=== PATIENT | male | born 1945 | race Caucasian/White ===

== ENCOUNTER → 2016-05-30 | Outpatient (CLI) | payer MEDICARE, BC | LOC: GMAH 10:33 | PROVIDERS: ATTEND Family Medicine | DX: I10 Essential (primary) hypertension (principal); Z12.5 Encounter for screening for malignant neoplasm of prostate | CPT/HCPCS: 84443; 84550; G0103 ==

== ENCOUNTER → 2017-06-21 | Outpatient (CLI) | payer MEDICARE, BC | LOC: LAB.O 13:30 | PROVIDERS: ATTEND Internal Medicine Gastroenterology | DX: R19.7 Diarrhea, unspecified (principal); R63.4 Abnormal weight loss ==

== ENCOUNTER → 2017-06-22 | Outpatient (CLI) | payer MEDICARE, BC ==
--- NOTE | 2017-06-23 08:41 | CT ---
EXAM DESCRIPTION: Abdomen/Pelvis w/Contrast: Computed Tomography. CLINICAL HISTORY: R10.84,R63.4 COMPARISON: CT scan of the abdomen and pelvis with IV contrast on this visit. TECHNIQUE: Spiral, axial 5.0 mm scans through the chest without contrast. Coronal and sagittal 2.0 mm reconstructions. Total Exam DLP: 436.21 mGy-cm. This exam was performed according to our departmental CT dose-optimization program which includes automated exposure control, adjustment of the mA and/or kV according to patient size and/or use of iterative reconstruction technique; to reduce radiation dose to as low as reasonably achievable (ALARA). FINDINGS: Prominent septal markings and interstitial densities in the lung bases more left than right. Similar process in the inferior lingula. Also thickening of major fissures and segmental and subsegmental margins. Minimal interstitial disease in the upper lung velazco. No prominent airspaces. [place] soft tissue nodule with smooth margins in the left upper lobe abutting the superior left major fissure with mean diameter 5.3 mm (series 4, image 35). Minimal posterior dependent atelectasis. No other abnormal nodules masses or infiltrates. No pleural effusion or pneumothorax. Evaluation of the mediastinum and hilum limited due to lack of IV contrast. Heterogeneous density in the thyroid gland. No large masses within the mediastinum axilla or hilar areas. Atherosclerotic calcifications of the aorta and proximal brachiocephalic vessels. Coronary artery calcifications. Minimal spondylosis in the included thoracic spine. Other bony structures are unremarkable in the thorax. IMPRESSION: 1. Interstitial process in the lungs predominantly lower lobes and more in the left lower lobe. Also in the inferior lingula. Nonspecific finding. This can be age-related or one of several interstitial lung diseases. 5 to 6 mm nodule in the left upper lobe abutting the superior major fissure noncalcified with smooth margins. Consider [facility] Best Practice recommendations utilizing 2017 Fleischner Society guidelines for solitary pulmonary nodules. Hospital follow-up chest CT scan in one year interval. Please see below.* No pulmonary mass and no pleural effusion. 2. Limited evaluation of the soft tissues due to lack of IV contrast but no large masses in the mediastinum and alexis or axillary regions or chest wall. *2017 Fleischner Society Recommendations for Single Solid Lung Nodule Follow-Up based on size (average of long- and short-axis diameters) <6 mm Low-Risk Patient: No routine follow-up <6 mm High-Risk Patient: Optional CT at 12 months 6-8 mm Low-Risk Patient: CT at 6-[address] at 18-24 months 6-8 mm High-Risk Patient: CT at 6-[address] at 18-24 months >8 mm Low-Risk Patient: Consider CT, PET/CT or tissue sampling at 3 months >8 mm High-Risk Patient: Same as for low-risk patient Electronically signed by: Bernabe Bonilla MD 06/23/2017 8:40 AM [facility]
--- NOTE | 2017-06-23 08:48 | CT ---
EXAM DESCRIPTION: Chest non-contrast: Computed Tomography. CLINICAL HISTORY: R10.84,R63.4 COMPARISON: CT scan of the abdomen and pelvis with IV contrast on this visit. TECHNIQUE: Spiral, axial 5.0 mm scans through the chest without contrast. Coronal and sagittal 2.0 mm reconstructions. Total Exam DLP: 436.21 mGy-cm. This exam was performed according to our departmental CT dose-optimization program which includes automated exposure control, adjustment of the mA and/or kV according to patient size and/or use of iterative reconstruction technique; to reduce radiation dose to as low as reasonably achievable (ALARA). FINDINGS: Prominent septal markings and interstitial densities in the lung bases more left than right. Similar process in the inferior lingula. Also thickening of major fissures and segmental and subsegmental margins. Minimal interstitial disease in the upper lung velazco. No prominent airspaces. [place] soft tissue nodule with smooth margins in the left upper lobe abutting the superior left major fissure with mean diameter 5.3 mm (series 4, image 35). Minimal posterior dependent atelectasis. No other abnormal nodules masses or infiltrates. No pleural effusion or pneumothorax. Evaluation of the mediastinum and hilum limited due to lack of IV contrast. Heterogeneous density in the thyroid gland. No large masses within the mediastinum axilla or hilar areas. Atherosclerotic calcifications of the aorta and proximal brachiocephalic vessels. Coronary artery calcifications. Minimal spondylosis in the included thoracic spine. Other bony structures are unremarkable in the thorax. IMPRESSION: 1. Interstitial process in the lungs predominantly lower lobe and more in the left lower lobe. Also in the inferior lingula. Nonspecific finding. This can be age-related or one of several interstitial lung diseases. 5 to 6 mm nodule in the left upper lobe abutting the superior major fissure noncalcified with smooth margins. Consider [facility] Best Practice recommendations utilizing 2017 Fleischner Society guidelines for solitary pulmonary nodules. Hospital follow-up chest CT scan in one year interval. Please see below.* No pulmonary mass and no pleural effusion. 2. Limited evaluation of the soft tissues due to lack of IV contrast but no large masses in the mediastinum and alexis or axillary regions or chest wall. *2017 Fleischner Society Recommendations for Single Solid Lung Nodule Follow-Up based on size (average of long- and short-axis diameters) <6 mm Low-Risk Patient: No routine follow-up <6 mm High-Risk Patient: Optional CT at 12 months 6-8 mm Low-Risk Patient: CT at 6-[address] at 18-24 months 6-8 mm High-Risk Patient: CT at 6-[address] at 18-24 months >8 mm Low-Risk Patient: Consider CT, PET/CT or tissue sampling at 3 months >8 mm High-Risk Patient: Same as for low-risk patient Electronically signed by: Bernabe Bonilla MD 06/23/2017 8:47 AM [facility]
== END ==
LOC: CT 09:00
PROVIDERS: ATTEND Internal Medicine Gastroenterology
DX: R10.84 Generalized abdominal pain (principal); R63.4 Abnormal weight loss

== ENCOUNTER 2017-08-01 05:41 | Day surgery (SDC) | payer MEDICARE, BC ==
--- NOTE | 2017-07-29 09:30 | RAD ---
EXAM DESCRIPTION: Chest,2 Views CLINICAL HISTORY: PRE OP COMPARISON: None TECHNIQUE: PA/lateral FINDINGS: There is no acute appearing cardiac or pulmonary abnormality. Heart size is normal with normal pulmonary vascularity. No pleural effusion or pneumothorax. Lungs are clear with no consolidating infiltrate. Lateral view shows intact sternum and osteopenic T-spine with mild lower thoracic spurring. Question old rib fractures posteriorly on the left. IMPRESSION: No acute process is identified in the chest. Electronically signed by: Lobito Iglesias MD 07/29/2017 9:29 AM [facility]
[2017-08-01] MEDS ORDERED: SODIUM CHL 0.9% 100ML MINI-BAG 100 ML IVPB ONE (06:54)
[2017-08-01] MEDS ORDERED: ceFAZolin SODIUM 1 GM VIAL ONE (06:54)
[2017-08-01] MEDS ORDERED: LACTATED RINGERS 1,000 ML ONE (06:54)
[2017-08-01] MEDS ORDERED: SODIUM BICARBONATE VIAL 50 MEQ/50 ML VIAL ONE (07:41)
[2017-08-01] MEDS ORDERED: HEPARIN SODIUM 100 U/ML 5 ML SYG IV ONE (07:41)
[2017-08-01] MEDS ORDERED: SODIUM CHLORIDE 0.9% 50 ML VIAL ONE (07:41)
[2017-08-01] MEDS ORDERED: LIDOCAINE 1% 50 ML VIAL INJ ONE (07:41)
[2017-08-01] MEDS ORDERED: MIDAZOLAM INJ 2 MG/2 ML VIAL ONE (08:29)
[2017-08-01] MEDS ORDERED: fentaNYL CITRATE INJ 50 MCG/ML AMP ONE (08:29)
[2017-08-01] MEDS ORDERED: PROPOFOL 200 MG/20 ML VIAL IV ONE (10:00)
[2017-08-01] MEDS ORDERED: LIDOCAINE 1% 10 ML VIAL INJ ONE (10:00)
--- NOTE | 2017-08-01 10:00 | RAD ---
EXAM DESCRIPTION: Chest,1 View CLINICAL HISTORY: post venous access port placement. COMPARISON: Chest radiograph dated July 28, 2017 IMPRESSION: Single upright portable frontal view of the chest. Interval placement of a right chest port with distal tip projecting over the mid to distal SVC. Cardiac silhouette and pulmonary vascularity are within normal limits. Calcific atherosclerosis noted of the aortic arch. Linear opacities in the left lung base most likely represent atelectasis. Underlying infiltrate cannot be excluded, although felt less likely. No significant pleural effusion. No pneumothorax. Electronically signed by: Eyal Skelton MD 08/01/2017 10:00 AM CDT
[2017-08-01 10:38] VITALS: BP 154/82; TEMP 96.6; O2SAT 100
--- NOTE | 2017-08-01 10:46 | OP ---
DATE OF PROCEDURE: 08/01/17 PREOPERATIVE DIAGNOSIS: 1. Pancreatic cancer. POSTOPERATIVE DIAGNOSIS: 1. Pancreatic cancer. PROCEDURE: 1. Insertion of right subclavian venous access port using fluoroscopy. SURGEON: Donte Reese MD. MEDIA COORDINATOR: None. ANESTHESIA: Local infiltration of 1% lidocaine with bicarb and IV sedation by Anesthesia. INDICATION: The patient is a 71-year-old male with a history of pancreatic malignancy. He is to receive neoadjuvant chemotherapy hopefully to a Whipple procedure. He was brought to the Surgical Suite today for insertion of a port after the risks, benefits and alternatives to the procedure were discussed and accepted. FINDINGS: Fluoroscopy revealed the guidewire and then the catheter in position in the superior vena cava. Portable chest x-ray is pending. PROCEDURE: After the patient was brought to the Surgical Suite and placed in the supine position, he was prepped and draped in the usual sterile manner. Surgical time-out was taken. The patient was then sedated intravenously and local infiltration of anesthesia was obtained in the infraclavicular area on the right which had previously been marked. At this point, a 22-gauge needle was introduced under the clavicle and venous blood was aspirated. The 18-gauge thin wall needle was then introduced in the same direction. Venous blood was easily aspirated and the guidewire was introduced through the needle and advanced to approximately 28 cm. The needle was removed and the guidewire left in position. Stab wound was made over the wire with a 15 blade. A towel was placed over the field and the fluoroscopy was used to identify the guidewire in position in the superior vena cava. At this point, a port pocket was formed first with local infiltration of anesthesia, then with a sharp knife. Dissection was carried down through the skin and subcutaneous tissue using electrocautery and then the port pocket was formed inferiorly using electrocautery and blunt dissection. When the port pocket was appropriate, the catheter and port which had been flushed were introduced into the port pocket and sutured in place with 2 Prolene simple sutures. The catheter was then tunneled to the insertion site from the port pocket. It was then cut to appropriate length. The dilator introducer was introduced over the guidewire. The guidewire and dilator were removed. The catheter was introduced through the introducer and then the introducer was removed. At this point, the port was accessed with a Velasquez needle. Blood was easily aspirated. It was then flushed with heparinized saline and then heplocked serially. When this was done , it was de-accessed. A towel was placed over the field and again the fluoroscope was used to identify the catheter in position in the superior vena cava. At this point, the subcutaneous tissue at the port pocket site was reapproximated with interrupted 3-0 Vicryl sutures and the skin edges approximated with 4-0 Vicryl subcuticular sutures, benzoin and Steri-Strips. The insertion site incision was closed with a single 4-0 Vicryl subcuticular suture, benzoin and Steri-Strip. A sterile dressing was applied. The patient tolerated the procedure well. Estimated blood loss was less than 25 mL. All sponge, needle and instrument counts were correct. Stat portable x-ray is ordered in the Ambulatory Unit. #[id number] [facility]
== END 2017-08-01 10:30 | disposition home or self-care (01) ==
LOC: AMB 05:41
PROVIDERS: ATTEND Surgery
DX: C25.9 Malignant neoplasm of pancreas, unspecified (principal); E11.9 Type 2 diabetes mellitus without complications; I10 Essential (primary) hypertension; I25.10 Atherosclerotic heart disease of native coronary artery without angina pectoris; Z79.4 Long term (current) use of insulin; Z79.82 Long term (current) use of aspirin; Z79.899 Other long term (current) drug therapy; Z95.5 Presence of coronary angioplasty implant and graft; Z87.891 Personal history of nicotine dependence
CPT/HCPCS: 00532; 36415; 36416; 36571; 71045; 71046; 76000; 80053; 81001; 82948; 85025; 93005; A4216; C1788; J0690; J1642; J2250; J3010; J3490; J7050; J7120

== ENCOUNTER 2018-05-06 00:47 | Emergency (ER) | payer MEDICARE, BC ==
[2018-05-06] MEDS ORDERED: HYDROcodone 10MG/APAP 325MG 1 EA TAB PO ONE (01:15)
[2018-05-06] MEDS ORDERED: ORPHENADRINE CITRATE 30 MG/ML AMP IM ONE (01:15)
--- NOTE | 2018-05-06 01:16 | ED.PDOC ---
History of Present Illness - General Chief Complaint: Neck Injury/Pain Stated Complaint: stiff neck Time Seen by Provider: 05/06/18 01:14 Source: patient Exam Limitations: no limitations - History of Present Illness Initial Comments: Gurvinder Pan 72 y/o male stated had some non radiating dull ache back of neck for 2 1/2 days and graduallly got worse tonight unable to turn his head up and from side to side.Denies recent or remote neck injury.Has history of pancreatic cancer s/p surgery and chemotherapy.Denies numbness,sore throat,chest pains,head ache or weakness both arms/legs.Took nsaids,aspirin,applied warm/moist pack but not helping. Timing/Duration: other - see hpi Severity: moderate Improving Factors: rest Worsening Factors: movement Associated Symptoms: denies symptoms, other - see hpi Allergies/Adverse Reactions: Allergies Morphine Allergy (Verified 12/26/14 14:36) Vomitting Home Medications: Ambulatory Orders Aspirin 325 mg PO BEDTIME 07/28/17 Atorvastatin Calcium [Lipitor] 80 mg PO BEDTIME 07/28/17 Enalapril Maleate 5 mg PO BID 07/28/17 Glyburide-Metformin [Glyburide/Metformin HCl 5-500 mg] 1 tab PO TID 07/28/17 Insulin Detemir [Levemir] 0 unit SUBCU BEDTIME 07/28/17 Metoprolol Succinate [Metoprolol Succinate ER] 100 mg PO DAILY 07/28/17 Pancrelipase (Lipase-Protease- [Zenpep] 1 cap PO TID 07/28/17 Pioglitazone HCl 45 mg PO DAILY 07/28/17 Sitagliptin Phosphate [Januvia] 100 mg PO DAILY 07/28/17 Tramadol HCl 50 mg PO PRN 07/28/17 Carisoprodol [Soma] 350 mg PO TID PRN #30 tab 05/06/18 Review of Systems - Review of Systems Musculoskeletal: States: see HPI, neck pain All other Systems: Reviewed and Negative, No Change from Baseline Past Medical History (General) - Patient Medical History Hx Stroke: No Hx Cardiac Disorders: Yes - [place] Hx Congestive Heart Failure: No Hx Hypertension: Yes Hx Diabetes: Yes - FSBS- 141 THIS AM Hx Cancer: Yes - pancreatic Hx MRSA: No Surgical History: other - Whipples surgery;cardiac stent - Vaccination History Hx Influenza Vaccination: Yes - 2013 Hx Pneumococcal Vaccination: Yes - Social History Hx Tobacco Use: Yes - quit 1994 Family Medical History - Family History Father Living Status: Hx Family Hypertension: Yes Physical Exam - Physical Exam General Appearance: Alert, Comfortable, No apparent distress Eye Exam: bilateral normal Ears, Nose, Throat: hearing grossly normal, normal ENT inspection, normal pharynx Neck: normal inspection, limited range of motion - pain on extension and both lateral flexion Respiratory: chest non-tender, lungs clear, normal breath sounds Cardiovascular/Chest: normal peripheral pulses, regular rate, rhythm, no murmur Peripheral Pulses: radial,right: 2+, radial,left: 2+ Gastrointestinal/Abdominal: non tender, soft Back Exam: no CVA tenderness, no vertebral tenderness Neurologic: alert, oriented x 3 Skin Exam: normal color, warm/dry Progress - Progress Progress: 05/06/18 01:46 Vital Signs - 8 hr 05/06/18 01:07 Temperature 97.5 F L Pulse Rate [ 120 H left] Respiratory 20 Rate Blood Pressure 188/95 [left] O2 Sat by Pulse 99 Oximetry - EKG/XRAY/CT CT Ordered: Yes - c-spine -degenerative disc disease Departure - Departure Clinical Impression: Neck pain, acute, Torticollis, unspecified, Degenerative cervical disc Time of Disposition: 02:28 Disposition: Discharge to Home or Self Care Condition: Fair Departure Forms: ED Discharge - Pt. Copy, Patient Portal Self Enrollment Instructions: DI for Neck Pain, Degenerative Disc Disease (DC), Generalized Neck Pain (DC) Referrals: Matt Dewey MD [Primary Care Provider] - 1-2 Weeks Prescriptions: Carisoprodol [Soma] 350 mg PO TID PRN #30 tab PRN Reason: Muscle Spasms Home Medications: Ambulatory Orders Aspirin 325 mg PO BEDTIME 07/28/17 Atorvastatin Calcium [Lipitor] 80 mg PO BEDTIME 07/28/17 Enalapril Maleate 5 mg PO BID 07/28/17 Glyburide-Metformin [Glyburide/Metformin HCl 5-500 mg] 1 tab PO TID 07/28/17 Insulin Detemir [Levemir] 0 unit SUBCU BEDTIME 07/28/17 Metoprolol Succinate [Metoprolol Succinate ER] 100 mg PO DAILY 07/28/17 Pancrelipase (Lipase-Protease- [Zenpep] 1 cap PO TID 07/28/17 Pioglitazone HCl 45 mg PO DAILY 07/28/17 Sitagliptin Phosphate [Januvia] 100 mg PO DAILY 07/28/17 Tramadol HCl 50 mg PO PRN 07/28/17 Carisoprodol [Soma] 350 mg PO TID PRN #30 tab 05/06/18 Additional Instructions: Keep appointment with primary Md 07 May 2018;return to ER as needed
[2018-05-06 01:17] VITALS: TEMP 97.5; O2SAT 99
--- NOTE | 2018-05-06 02:15 | CT ---
EXAM: NONCONTRAST CERVICAL SPINE CT EXAMINATION. CLINICAL INDICATION: Neck pain. History of cancer. COMPARISON: None currently available. TECHNIQUE: Using low-dose helical technique, thin section axial images were performed through the cervical spine without the administration of intravenous or subarachnoid contrast material. CT sagittal coronal reconstructions were also obtained. FINDINGS: Severe degenerative disease noted preodontoid space as well as at the C4/C5, C5/C6 and C6/C7 levels. Mild bony spinal canal stenosis at the C5/C6 and C6/C7 levels. No fractures, spondylolisthesis or facet joint dislocation. No hemorrhage in the spinal canal. Precervical soft tissue thickness is normal. The odontoid process, preodontoid space and C1 vertebral body are intact. The occipital condyles are intact. Partially visualized bony structures of the skull base appear normal. Partially visualized atherosclerotic calcification in the carotid bulbs. Soft tissue structures of the neck are grossly normal on this noncontrast examination. IMPRESSION: 1. Multilevel degenerative disease throughout the cervical spine without fracture or dislocation. 2. Mild bony spinal canal stenosis at the C5/C6 and C6/C7 levels. 3. Partially visualized atherosclerotic calcification in both carotid bulbs. This exam was performed according to our departmental dose-optimization program, which includes automated exposure control, adjustment of the mA and/or kV according to patient size and/or use of iterative reconstruction technique. Electronically signed by: Terell Becker MD 05/06/2018 2:14 AM [facility]
[2018-05-06] MEDS ORDERED: HYDROCOD/APAP 10/325 (ER DISP) # 3 tablets PO ONE (02:26)
[2018-05-06 02:42] VITALS: BP 166/99
== END 2018-05-06 02:42 | disposition home or self-care (01) ==
LOC: ER 00:47
DX: M43.6 Torticollis (principal); M50.323 Other cervical disc degeneration at C6-C7 level; I25.2 Old myocardial infarction; I10 Essential (primary) hypertension; E11.9 Type 2 diabetes mellitus without complications; Z85.07 Personal history of malignant neoplasm of pancreas; Z88.5 Allergy status to narcotic agent; Z92.21 Personal history of antineoplastic chemotherapy; Z87.891 Personal history of nicotine dependence; Z79.899 Other long term (current) drug therapy
CPT/HCPCS: 72125; J2360

== ENCOUNTER → 2020-06-10 | Outpatient (CLI) | payer MEDICARE, BC | LOC: LAB.O 09:33 | PROVIDERS: ATTEND Internal Medicine Endocrinology, Diabetes & Metabolism | DX: I10 Essential (primary) hypertension (principal); Z79.4 Long term (current) use of insulin; K86.89 Other specified diseases of pancreas; E08.9 Diabetes mellitus due to underlying condition without complications ==